=== PATIENT | female | born 1985 ===

== ENCOUNTER 2024-11-07 06:22 | Day surgery (SDC) | payer OTHER ==
[2024-10-31 09:11] LABS: URINE APPEARANCE Clear; URINE BILIRRUBIN Negative (NEGATIVE); URINE BLOOD Negative; URINE COLOR Yellow; URINE GLUCOSE Negative (NEGATIVE); URINE KETONE Negative (NEGATIVE); URINE LEUKOCYTE Negative; URINE NITRATE Negative; URINE PROTEIN Negative (NEGATIVE); URINE UROBILINOGEN 0.2 E.U./dl
[2024-10-31 09:13] VITALS: BP 112/76
[2024-10-31 09:14] LABS: HEMATOCRIT 38.3 % (36.0-45.00); HEMOGLOBIN 12.9 g/dL (12.0-15.00); MEAN CELL VOLUME 89.2 fL (80.00-100.00); MEAN CORPUSCULAR HEMOGLOBIN 30.1 pg (27.00-32.0); MEAN CORPUSCULAR HGB CONC 33.8 g/dl (32.0-36.0); PLATELET COUNT 287 K/uL (150-450); RED BLOOD COUNT 4.29 M/uL (4.00-6.00); RED CELL DISTRIBUTION WIDTH 13.9 % (11.5-14.5)
[2024-10-31 09:16] LABS: URINE BACTERIA 231.3 uL (0.0-1933); URINE EPITHELIAL CELLS 8.2 uL (0.0-38.8); URINE RBC 6.4 uL (0.0-20.8); URINE WBC 2.8 uL (0.0-23.2)
[2024-10-31 09:27] LABS: PARTIAL THROMBOPLASTIN TIME 25.4 SECONDS (22.0-34.0); PROTHROMBIN TIME 10.9 SECONDS (9.0-11.5)
[2024-10-31 09:45] LABS: ALBUMIN 3.4 gm/dL (3.4-5.0); BILIRUBIN TOTAL 0.61 mg/dL (0.3-1.2); CALCIUM 8.9 mg/dL (8.5-10.1); CREATININE SERUM 0.66 mg/dL (0.55-1.02); GFR 100.77; GLOBULINA 3.4 G/DL (2.4-3.5); POTASSIUM 4.23 mEq/L (3.5-5.1); TOTAL PROTEIN 6.8 gm/dL (6.4-8.2)
[~2024-11-07] VITALS: Ht 162.6 cm; Wt 79.4 kg
[2024-11-07] MEDS ORDERED: CEFAZOLIN SODIUM 1,000 MG VIAL ONE (09:42)
[2024-11-07] MEDS ORDERED: POVIDONE-IODINE 118 ML BOTT TOP ONE (12:48)
[2024-11-07] MEDS ORDERED: DOXYCYCLINE HY100 MG PO (18:05)
[2024-11-07] MEDS ORDERED: NAPROXEN500 MG PO (18:05)
[2024-11-07 22:15] VITALS: BP 115/84; O2SAT 100
== END 2024-11-07 19:35 | disposition home or self-care (01) ==
LOC: CIR.AMB 06:22
PROVIDERS: ATTEND Obstetrics & Gynecology
DX: D25.0 Submucous leiomyoma of uterus (principal); N95.0 Postmenopausal bleeding; N84.0 Polyp of corpus uteri; I95.9 Hypotension, unspecified; E16.2 Hypoglycemia, unspecified; F41.9 Anxiety disorder, unspecified; M19.90 Unspecified osteoarthritis, unspecified site; M41.9 Scoliosis, unspecified